=== PATIENT | female | born 1940 | race Caucasian/White ===

== ENCOUNTER 2017-02-15 13:25 | Inpatient (IN) | payer BC ==
[~2017-02-15] VITALS: Ht 157.5 cm; Wt 70.1 kg
[~2017-02-15 13:25] MED LIST: ACCUPRIL40MGTAB; ACCUPRIL40MGTAB PO; ASPIRIN 32325 MG/TAB PO; BETAPACE 120MG120 MG PO; COLACE 100100 MG/CAP PO; CORGARD80 MG PO; ELIQUIS 5MG PO; FISH OIL500 MG PO; LASIX 20MG TABL20 MG PO; LIPITOR20 MG PO; PROTONIX 40MG T40 MG PO; RT SPIRIVA18 MCG IH; SYNTHROID0.05 MG/TA PO; SYNTHROID0.075 MG/T PO; TYLENOL 500MG500 MG PO; TYLENOL W/COD1 UDTAB PO; ULTRAM 50MG TAB50 MG PO; XANAX 0.5MG0.5 MG PO; XANAX 1MG1 MG PO; ZYRTEC 10MG10 MG PO; ZYRTEC ALLERGY10 MG PO; [UNRECOGNIZED DRUG - OTHER] RC
[2017-02-15 13:54] LABS: BASO % 0.5 % (0.0-2.0); EOS # 0.1 (0.0-0.7); EOS % 2.2 % (0-4.0); GRAN # 3.2 (1.4-6.5); HEMATOCRIT 42.9 % (37.0-47.0); LYMPH # 1.7 (1.2-3.4); LYMPH % 29.8 % (20.0-51.0); MEAN CELL VOLUME 88 fl (80.0-100.0); MEAN CORPUSCULAR HEMOGLOBIN 31 pg (27.0-31.0); MEAN CORPUSCULAR HGB CONC 35 g/dl (33.0-37.0); MEAN PLATELET VOLUME 11.2 fl (7.4-10.4); MONO # 0.6 (0.1-0.6); MONO % 10.3 % (1.7-9.3); PLATELET COUNT 218 K/mm3 (130-400); RED BLOOD COUNT 4.88 M/mm3 (4.10-5.30); REDCELL DISTRIBUTION WIDTH-CV 12.3 % (11.5-14.5); WHITE BLOOD COUNT 5.5 K/mm3 (4.8-10.8)
[2017-02-15 14:04] LABS: ADJUSTED CALCIUM 9.2 mg/dL (8.4-10.2); ALANINE AMINOTRANSFERASE 27 U/L (9-52); ALBUMIN 4.5 gm/dL (3.5-5.0); ALKALINE PHOSPHATASE 96 U/L (50-136); ANION GAP 13 mmol/L (7-16); BLOOD UREA NITROGEN 21 mg/dL (7-17); CALCIUM 9.6 mg/dL (8.4-10.2); CARBON DIOXIDE 28 mmol/L (22-30); CHLORIDE 98 mmol/L (98-107); CREATINE KINASE 48 U/L (30-135); CREATININE, serum 0.87 mg/dL (0.52-1.25); GLUCOSE 97 mg/dL (74-106); INR 1.5 (0.8-3.0); MAGNESIUM 1.8 mg/dL (1.6-2.3); POTASSIUM 4.2 mmol/L (3.4-5.0); PROTHROMBIN TIME 16.7 SECONDS (9.7-12.8); SODIUM 138 mmol/L (137-145); TOTAL PROTEIN 7.5 gm/dL (6.4-8.2)
[2017-02-15 14:16] LABS: B-TYPE NATRIURETIC PEPTIDE 529 pg/mL (0-450); TROPONIN-I < 0.012 ng/mL (0.000-0.034)
[2017-02-15 16:42] VITALS: BP 152/110; PULSE 88; TEMP 97.6
[2017-02-15] MEDS ORDERED: RESTASIS0.05% OU (16:57)
[2017-02-15 21:37] VITALS: BP 122/55; PULSE 56; TEMP 97.2
[2017-02-16] VITALS (7 sets, daily range): BP systolic 116–168; BP diastolic 48–95; PULSE 55–91; TEMP 97.5–98.3
[2017-02-16 13:05] LABS: THYROID STIMULATING HORMONE 1.75 uIU/mL (0.465-4.680)
[2017-02-16] MEDS ORDERED: BETAPACE 120MG120 MG PO (19:09)
[2017-02-17 02:29] VITALS: BP 121/62; PULSE 55; TEMP 98.4
[2017-02-17 07:57] VITALS: BP 154/58; PULSE 60; TEMP 97.9
[2017-02-17 11:29] LABS: INR 1.7 (0.8-3.0)
[2017-02-17] MEDS ORDERED: RT ADVAIR HFA 1112 G IH (11:47)
[2017-02-17 11:58] VITALS: BP 146/60; PULSE 55; TEMP 97.6
[2017-02-17] MEDS ORDERED: BETAPACE240 MG PO (12:20)
[2017-02-17] MEDS ORDERED: RT ADVAIR HFA 412 GM IH (12:26)
== END 2017-02-17 13:03 | disposition home or self-care (01) | DRG 310 ==
LOC: COL.ER 13:25 → MEDICAL 15:40
PROVIDERS: Emergency Medicine; Internal Medicine; Internal Medicine Interventional Cardiology
DX: I48.0 Paroxysmal atrial fibrillation (principal); I10 Essential (primary) hypertension; E03.9 Hypothyroidism, unspecified; R51 Headache; J44.9 Chronic obstructive pulmonary disease, unspecified; Z79.52 Long term (current) use of systemic steroids
CPT/HCPCS: 99222-AI; 99223-AI; 99232-AI; 99239; J7030

== ENCOUNTER → 2017-05-04 | Outpatient (CLI) | payer BC ==
[~2017-05-04] MED LIST changes: +BETAPACE240 MG PO; +RESTASIS0.05% OU; +RT ADVAIR HFA 1112 G IH; +RT ADVAIR HFA 412 GM IH
== END ==
LOC: MC.RAD 08:04
DX: Z12.31 Encounter for screening mammogram for malignant neoplasm of breast (principal)

== ENCOUNTER 2017-11-02 19:31 | Emergency (ER) | payer BC ==
[~2017-11-02] VITALS: Ht 157.5 cm; Wt 61.4 kg
[2017-11-02 19:37] VITALS: TEMP 96.8
[2017-11-02 20:07] LABS: BASO # 0.1 (0.0-0.2); BASO % 0.6 % (0.0-2.0); EOS # 0.2 (0.0-0.7); GRAN # 5.1 (1.4-6.5); GRAN % 64.8 % (42.2-75.2); HEMATOCRIT 44.3 % (37.0-47.0); HEMOGLOBIN 15.1 g/dl (12.5-16.0); LYMPH # 1.8 (1.2-3.4); MEAN CELL VOLUME 91 fl (80.0-100.0); MEAN CORPUSCULAR HEMOGLOBIN 31 pg (27.0-31.0); MEAN CORPUSCULAR HGB CONC 34 g/dl (33.0-37.0); MEAN PLATELET VOLUME 11.2 fl (7.4-10.4); MONO # 0.7 (0.1-0.6); MONO % 8.2 % (1.7-9.3); PLATELET COUNT 257 K/mm3 (130-400); RED BLOOD COUNT 4.88 M/mm3 (4.10-5.30); REDCELL DISTRIBUTION WIDTH-CV 12.3 % (11.5-14.5)
[2017-11-02 20:13] LABS: ALANINE AMINOTRANSFERASE 28 U/L (9-52); ALBUMIN 4.4 gm/dL (3.5-5.0); ALKALINE PHOSPHATASE 96 U/L (50-136); ANION GAP 12 mmol/L (7-16); AST,SGOT 20 U/L (15-37); BILIRUBIN,TOTAL 0.7 mg/dL (0.0-1.0); BLOOD UREA NITROGEN 11 mg/dL (7-17); CALCIUM 9.7 mg/dL (8.4-10.2); CARBON DIOXIDE 24 mmol/L (22-30); CHLORIDE 101 mmol/L (98-107); CREATININE, serum 0.84 mg/dL (0.52-1.25); GLUCOSE 132 mg/dL (74-106); POTASSIUM 3.5 mmol/L (3.4-5.0); SODIUM 138 mmol/L (137-145); TOTAL PROTEIN 7.7 gm/dL (6.4-8.2)
[2017-11-02] MEDS ORDERED: MIRALAX119G PO (20:25)
[2017-11-02 20:29] LABS: TROPONIN-I < 0.012 ng/mL (0.000-0.034)
[2017-11-02 21:48] VITALS: BP 120/55; PULSE 60
== END 2017-11-02 22:03 | disposition home or self-care (01) ==
LOC: COL.ER 19:31
PROVIDERS: Emergency Medicine
DX: I48.91 Unspecified atrial fibrillation (principal); I10 Essential (primary) hypertension; F41.9 Anxiety disorder, unspecified; Z79.01 Long term (current) use of anticoagulants
CPT/HCPCS: J2060; J7030

== ENCOUNTER → 2018-05-11 | Outpatient (CLI) | payer BC ==
[~2018-05-11] MED LIST changes: +MIRALAX119G PO
== END ==
LOC: MC.RAD 11:10
DX: Z12.31 Encounter for screening mammogram for malignant neoplasm of breast (principal)

== ENCOUNTER 2018-05-19 19:19 | Emergency (ER) | payer BC ==
[~2018-05-19] VITALS: Ht 157.5 cm; Wt 59.1 kg
[2018-05-19 19:23] VITALS: BP 165/81; TEMP 97.4
[2018-05-19] MEDS ORDERED: ASMANEX HF100 MCG/Ac IH (20:03)
[2018-05-19] MEDS ORDERED: ELIQUIS 5MG PO (20:05)
[2018-05-19] MEDS ORDERED: COLCRYS0.6 MG PO (20:05)
[2018-05-19] MEDS ORDERED: RESTASIS 60VL (20:37)
[2018-05-19] MEDS ORDERED: PROBIOTIC ACID1 EAC3 PO (20:37)
[2018-05-19] MEDS ORDERED: NORCO 325 MG-51 TAB PO (21:35)
[2018-05-19] MEDS ORDERED: FLEXERIL5 MG PO (21:35)
[2018-05-19] MEDS ORDERED: LIDODERM 5% PATC1 EA TP (21:35)
[2018-05-19 23:45] VITALS: PULSE 75
== END 2018-05-19 23:45 | disposition home or self-care (01) ==
LOC: COL.ER 19:19
DX: S39.012A Strain of muscle, fascia and tendon of lower back, initial encounter (principal); S70.02XA Contusion of left hip, initial encounter; I48.91 Unspecified atrial fibrillation; E78.5 Hyperlipidemia, unspecified; I10 Essential (primary) hypertension; M47.817 Spondylosis without myelopathy or radiculopathy, lumbosacral region; Z79.891 Long term (current) use of opiate analgesic; W10.9XXA Fall (on) (from) unspecified stairs and steps, initial encounter; Y92.009 Unspecified place in unspecified non-institutional (private) residence as the place of occurrence of the external cause
CPT/HCPCS: J1170; J1885; J2360; J2405

== ENCOUNTER → 2019-06-23 | Outpatient (CLI) | payer MEDICARE, BC ==
[~2019-06-23] MED LIST changes: +ASMANEX HF100 MCG/Ac IH; +COLCRYS0.6 MG PO; +FLEXERIL5 MG PO; +LIDODERM 5% PATC1 EA TP; +NORCO 325 MG-51 TAB PO; +PROBIOTIC ACID1 EAC3 PO; +RESTASIS 60VL
== END ==
LOC: MC.RAD 08:38
DX: Z12.31 Encounter for screening mammogram for malignant neoplasm of breast (principal)

== ENCOUNTER 2019-10-31 18:00 | Emergency (ER) | payer BC ==
[~2019-10-31] VITALS: Ht 154.9 cm; Wt 64.1 kg
[2019-10-31 18:12] VITALS: TEMP 96.4
[2019-10-31] MEDS ORDERED: XANAX 1MG1 MG PO (18:58)
[2019-10-31] MEDS ORDERED: PACERONE100 MG PO (18:59)
[2019-10-31] MEDS ORDERED: TOPROL XL 50MG50 MG PO (18:59)
[2019-10-31] MEDS ORDERED: PLENDIL 5MG TAB5 MG PO (19:00)
[2019-10-31] MEDS ORDERED: VITAMIN D32000 I1 PO (19:01)
[2019-10-31] MEDS ORDERED: ACCUPRIL40MGTAB PO (19:02)
[2019-10-31] MEDS ORDERED: NORCO 325 MG-51 TAB PO (19:36)
[2019-10-31 20:30] VITALS: BP 129/69; PULSE 61
== END 2019-10-31 20:30 | disposition home or self-care (01) ==
LOC: COL.ER 18:00
DX: S42.292A Other displaced fracture of upper end of left humerus, initial encounter for closed fracture (principal); I48.91 Unspecified atrial fibrillation; Z79.01 Long term (current) use of anticoagulants; W01.0XXA Fall on same level from slipping, tripping and stumbling without subsequent striking against object, initial encounter; Y92.009 Unspecified place in unspecified non-institutional (private) residence as the place of occurrence of the external cause
CPT/HCPCS: J3010

== ENCOUNTER → 2020-04-05 | Outpatient (CLI) | payer BC ==
[~2020-04-05] MED LIST changes: +CLEOCIN HCL300 MG PO; +EPA FISH OIL1 SGL PO; -FISH OIL500 MG PO; +PACERONE100 MG PO; +PLENDIL 5MG TAB5 MG PO; +TOPROL XL 50MG50 MG PO; +VITAMIN D32000 I1 PO
== END ==
LOC: COL.LAB 08:00
DX: Z20.828 Contact with and (suspected) exposure to other viral communicable diseases (principal)

== ENCOUNTER → 2020-09-18 | Outpatient (CLI) | payer BC | LOC: MC.RAD 08:40 | DX: Z12.31 Encounter for screening mammogram for malignant neoplasm of breast (principal) ==

== ENCOUNTER → 2022-01-17 | Outpatient (CLI) | payer BC | LOC: MC.RAD 09:09 | DX: Z12.31 Encounter for screening mammogram for malignant neoplasm of breast (principal) ==

== ENCOUNTER 2022-03-04 21:32 | Emergency (ER) | payer BC ==
[~2022-03-04] VITALS: Ht 152.4 cm; Wt 67.7 kg
[2022-03-04 23:12] LABS: BASO # 0.1 K/mm3 (0.0-0.2); BASO % 0.6 % (0.0-2.0); EOS # 0.1 K/mm3 (0.0-0.7); EOS % 1.1 % (0.0-4.0); GRAN # 5.2 K/mm3 (1.4-6.5); GRAN % 66.8 % (42.2-75.2); HEMOGLOBIN 13.4 g/dl (12.5-16.0); LYMPH # 1.5 K/mm3 (1.2-3.4); LYMPH % 19.4 % (20.0-51.0); MEAN CELL VOLUME 94 fl (80.0-100.0); MEAN CORPUSCULAR HEMOGLOBIN 31 pg (27-31); MEAN CORPUSCULAR HGB CONC 34 g/dl (33.0-37.0); MEAN PLATELET VOLUME 11.3 fl (7.4-10.4); MONO # 0.9 K/mm3 (0.1-0.6); MONO % 11.7 % (1.7-9.3); PLATELET COUNT 236 K/mm3 (130-400); RED BLOOD COUNT 4.28 M/mm3 (4.10-5.30)
[2022-03-04 23:14] LABS: INR 2.9 (0.8-3.0); PROTHROMBIN TIME 33.1 SECONDS (9.7-12.8)
[2022-03-04 23:59] VITALS: BP 135/93; PULSE 77; TEMP 97.9
== END 2022-03-04 23:59 | disposition home or self-care (01) ==
LOC: COL.ER 21:32
PROVIDERS: Nurse Practitioner
DX: S80.12XA Contusion of left lower leg, initial encounter (principal); Z79.01 Long term (current) use of anticoagulants; W22.8XXA Striking against or struck by other objects, initial encounter

== ENCOUNTER → 2024-05-10 | Outpatient (CLI) | payer MEDICARE, BC ==
[~2024-05-10] MED LIST changes: +MACRODANTIN100 PO
== END ==
LOC: MC.RAD 08:50
DX: Z12.31 Encounter for screening mammogram for malignant neoplasm of breast (principal)